=== PATIENT | male | born 1985 ===

== ENCOUNTER 2016-10-26 00:54 | Emergency (ER) | payer BC ==
[~2016-10-26] VITALS: Ht 172.7 cm; Wt 109.0 kg
[2016-10-26 01:06] VITALS: Ht 172.7 cm; Wt 109.0 kg
[2016-10-26] MEDS ORDERED: SOD CHLORIDE 0.9% 1,000 ML IV STA (01:27)
[2016-10-26] MEDS ORDERED: morphine 4 MG/ML VIAL IV STA (01:27)
[2016-10-26] MEDS ORDERED: ONDANSETRON 4 MG INJ IV STA (01:27)
[2016-10-26] MEDS ORDERED: HYDROmorphONE 1 MG/ML SYG IV STA ×2 (01:42→02:02)
[2016-10-26 01:56] VITALS: BP 132/80; PULSE 73; RESP 26; TEMP 98.4
--- NOTE | 2016-10-26 02:18 | RADRPT ---
PROCEDURE: CT ABDOMEN/PELVIS WITHOUT CONTRAST CLINICAL INDICATION: 31-year-old male with abdominal pain. TECHNIQUE: The study was performed utilizing a GE [employer] VCT 64-slice CT scanner. Direct axia l sections were obtained through the abdomen and pelvis without the use of intravenous contrast mate rial. Sagittal and coronal reformations were obtained. One or more of the following dose reduction t echniques were utilized: automated exposure control, adjustment of the mA and/or kV according to pat ient's size or use of iterative reconstruction technique. The images were reviewed on a PACS workst [employer]. CTD/vol = 23.1 mGy; Total Exam DLP = 16 100.0 mGy-cm. COMPARISON: None. FINDINGS: The lung bases are unremarkable. There is no evidence for significant pleural effusion. The liver has a normal size and contour without focal areas of abnormal density. No intrahepatic nor extrahepa tic biliary ductal dilatation is seen. The gallbladder demonstrates no wall thickening nor perichole cystic fluid. No biliary stones are evident. The pancreas is without areas of abnormal attenuation. The spleen is enlarged measuring 15.4 cm in maximal length but without abnormal density. The adrena l glands are unremarkable. The kidneys are without abnormal density. No hydroureteronephrosis nor ne phroureterolithiasis is evident. The urinary bladder contains a small volume of urine. Multiple surg ical clips are seen within the gastric region from prior bypass surgery. There is mild fecalization of the distal small bowel with retained stool within the ascending and transverse colon without jayla dence for obstruction. The appendix is visualized and is without abnormal thickening or surrounding inflammatory reaction. The aortoiliac vessels are without aneurysmal dilatation. The oss eous structures are intact. IMPRESSION: 1. Prior gastric surgery. 2. Splenomegaly. 3. No CT evidence for obstructive uropathy or renal calculi. 4. Fecalization of the distal small bowel with retained stool in the proximal colon without gross b owel obstruction. 5. No CT evidence for appendicitis. .Aristeo Bonner MD, MD Date Time Electronically viewed and signed by .Aristeo Bonner MD, MD on 10/26/2016 02:18 .M/
[2016-10-26 02:28] LABS: ADD UMIC NO; UR ASCORBIC ACID NEGATIVE (NEGATIVE); UR BILIRUBIN (Dip) NEGATIVE (NEGATIVE); UR BLOOD (Dip) NEGATIVE (NEGATIVE); UR CLARITY CLEAR (CLEAR); UR COLOR YELLOW (YELLOW); UR GLUCOSE (Dip) NEGATIVE (NEGATIVE); UR KETONES (Dip) TRACE mg/dL (NEGATIVE); UR LEUKOCYTE ESTERASE (Dip) NEGATIVE Leu/ul (NEGATIVE); UR NITRITE (Dip) NEGATIVE (NEGATIVE); UR SPECIFIC GRAVITY (Dip) 1.015 (1.003-1.030); UR TOTAL PROTEIN (Dip) NEGATIVE (NEGATIVE); UR UROBILINOGEN (Dip) NEGATIVE (NEGATIVE)
[2016-10-26 02:36] LABS: ALBUMIN 4.8 g/dl (3.3-4.9); ALBUMIN/GLOBULIN RATIO 1.5; BILIRUBIN,INDIRECT 0.1 mg/dl (0-1.1); BILIRUBIN,TOTAL 0.1 mg/dl (0.2-1.3); CALCIUM 10.4 mg/dl (8.4-10.2); CREATININE 0.96 mg/dl (0.61-1.24); POTASSIUM 3.6 mmol/L (3.5-5.1)
[2016-10-26 02:57] LABS: BASOPHIL # 0.1 10^3/ul (0.0-0.1); BASOPHILS % 0.5 % (0.0-2.0); EOSINOPHILS # 0.1 10^3/ul (0.0-0.5); EOSINOPHILS % 0.6 % (0.0-7.0); HEMATOCRIT 44.9 % (42.0-52.0); HEMOGLOBIN 15.9 g/dl (14.0-18.0); LYMPHOCYTES # 2.5 10^3/ul (0.8-2.9); MEAN CORPUSCULAR HEMOGLOBIN 30.9 pg (29.0-33.0); MEAN CORPUSCULAR HGB CONC 35.4 g/dl (32.0-37.0); MEAN CORPUSCULAR VOLUME 87.4 fl (82.0-101.0); MEAN PLATELET VOLUME 10.7 fl (7.4-10.4); MONOCYTE # 0.5 10^3/ul (0.3-0.9); MONOCYTES % 4.7 % (0.0-11.0); NEUTROPHILS % 70.9 % (39.0-77.0); NUCLEATED RED BLOOD CELLS% 0.3 /100WBC (0.0-0.0); PLATELET COUNT 146 10^3/UL (140-415); RED BLOOD COUNT 5.14 10^6/ul (4.70-6.10); RED CELL DISTRIBUTION WIDTH 13.4 % (11.5-14.5); WHITE BLOOD COUNT 10.8 10^3/ul (4.8-10.8)
[2016-10-26] MEDS ORDERED: SOD CHLORIDE 0.9% 1,000 ML IV ONE (03:00)
[2016-10-26] MEDS ORDERED: IOHEXOL 100 ML ONE (03:07)
[2016-10-26] MEDS ORDERED: SOD CHLORIDE 0.9% 100 ML ONE (03:07)
--- NOTE | 2016-10-26 04:12 | RADRPT ---
PROCEDURE: CTA MESENTERIC CLINICAL INDICATION: 31-year-old male with abdominal pain. TECHNIQUE: The study was performed utilizing a GE [employer]od[employer]aleidoscope VCT 64-slice CT scanner. Direct axia l sections were obtained through the abdomen and pelvis with the use of 100 cc of Omnipaque-350 stephie onic intravenous contrast material. Sagittal and coronal reformations were obtained. Maximal intensi ty projection reformations were obtained. One or more of the following dose reduction techniques wer e utilized: automated exposure control, adjustment of the mA and/or kV according to patient's size o r use of iterative reconstruction technique. The images were reviewed on a PACS workstation. CTD/v ol = 88.6 mGy; Total Exam DLP = 1498.1 mGy-cm. COMPARISON: CT abdomen/pelvis noncontrast October 26, 2016. FINDINGS: There is mild bibasilar subsegmental atelectasis.. There is no evidence for significant pleural eff usion. The liver has a normal size and contour without focal areas of abnormal density or contrast enhancement. No intrahepatic nor extrahepatic biliary ductal dilatation is seen. The gallbladder dem onstrates no wall thickening nor pericholecystic fluid. No biliary stones are evident. The pancreas is without areas of abnormal attenuation or contrast enhancement. This spleen is enlarged and measu res approximately 15.4 cm in maximal length but without abnormal density or contrast enhancement. Th e adrenal glands are unremarkable. The kidneys are functional bilaterally without abnormal density. No hydroureteronephrosis nor nephroureterolithiasis is evident. The urinary bladder contains urine. Surgical clips are seen within the gastric region from prior bypass surgery. There is fecalization o f the distal small bowel with mild retained stool within the ascending and transverse colon without obstruction. The appendix is visualized and is without edema or surrounding inflammatory reaction. T here is no significant free fluid. There is diffuse increased number of shotty para-aortic and retro peritoneal lymph nodes. Note definite dominant node is present. The prostate is not enlarged. The osseous structures are intact. The aortoiliac vessels are without aneurysmal dilatation or dissectio n. The celiac, superior mesenteric, renal and inferior mesenteric arteries are patent without evide nce for significant stenosis or occlusion. IMPRESSION: 1. Unremarkable CTA of the mesenteric vasculature. 2. Mild bibasilar subsegmental atelectasis. 3. Splenomegaly. 4. Prior gastric bypass surgery. 5. Fecalization of the distal small bowel and mild retained stool within the proximal colon without obstruction. 6. Marked diffuse increased para-aortic/retroperitoneal lymph nodes. .Aristeo Bonner MD, Date Time Electronically viewed and signed by .Aristeo Bonner MD, on 10/26/2016 04:12 .M/
[2016-10-26] MEDS ORDERED: KETOROLAC 30 MG INJ IV STA (04:17)
[2016-10-26] MEDS ORDERED: HYDR-906 PO (06:26)
[2016-10-26] MEDS ORDERED: NAPR-688 PO (06:26)
[2016-10-26] MEDS ORDERED: POLY17PO6 PO (06:26)
--- NOTE | 2016-10-26 06:54 | ERD ---
ER Documentation Chief Complaint Date/Time DATE: 10/26/16 TIME: 06:29 Chief Complaint GEN AP X 2 HRS AFTER EATING. HX OF GASTRIC SURGERY HPI This 31-year-old male presents emergency room with acute severe abdominal pain 2 hours after eating. Is not sure that he ate too much. Severe abdominal pain with nausea, no current vomiting. His gastric sleeve was placed 2 years ago at [facility]. No shortness of breath or cardiac issues per ROS All systems reviewed and are negative except as per history of present illness. Medications Home Meds Active Scripts Polyethylene Glycol* (Miralax*) 17 Gm Powd.pack, 17 GM PO DAILY, #7 Prov:PEDRO BUCKLEY DO 10/26/16 Hydrocodone/Acetaminophen (Newcomb 5-325 Tablet) 1 Each Tablet, 1 EACH PO Q6, #24 TAB Prov:PEDRO BUKCLEY DO 10/26/16 Naproxen* (Naproxen*) 500 Mg Tablet, 500 MG PO BID Y for pian, #20 TAB Prov:PEDRO BUCKLEY DO 10/26/16 Allergies Allergies: Coded Allergies: No Known Allergy (Unverified , 10/26/16) PMhx/Soc History of Surgery: Yes (GASTRIC SLEEVE) Anesthesia Reaction: No Hx Neurological Disorder: No Hx Respiratory Disorders: No Hx Cardiac Disorders: No Hx Psychiatric Problems: No Hx Miscellaneous Medical Probl: No Hx Alcohol Use: Yes (SOCIALLY) Hx Substance Use: No Hx Tobacco Use: Yes (CIGGARETES) Smoking Status: Current every day smoker Physical Exam Vitals Vital Signs Date Time Temp Pulse Resp B/P Pulse Ox O2 Delivery O2 Flow Rate FiO2 10/26/16 01:56 98.4 73 26 132/80 100 Room Air 10/26/16 01:06 98.4 76 28 202/64 100 Physical Exam Const: [] Severe distress Head: Atraumatic Eyes: Normal Conjunctiva ENT: Normal External Ears, Nose and Mouth. Neck: Full range of motion..~ No meningismus. Resp: Clear to auscultation bilaterally Cardio: Regular rate and rhythm, no murmurs Abd: Soft, mild mid abdominal tenderness, non distended. Normal bowel sounds Skin: No petechiae or rashes Back: No midline or flank tenderness Ext: No cyanosis, or edema Neur: Awake and alert and oriented x 3, no focal deficits Psych: Normal Mood and Affect Result Diagram: 9/3/17 0026 10/26/16 0026 Results 24 hrs Laboratory Tests Test 10/26/16 00:26 10/26/16 01:37 10/26/16 01:50 10/26/16 05:08 White Blood Count 10.810^3/ul Red Blood Count 5.1410^6/ul Hemoglobin 15.9g/dl Hematocrit 44.9% Mean Corpuscular Volume 87.4fl Mean Corpuscular Hemoglobin 30.9pg Mean Corpuscular Hemoglobin Concent 35.4g/dl Red Cell Distribution Width 13.4% Platelet Count 82632^3/UL Mean Platelet Volume 10.7fl Neutrophils % 70.9% Lymphocytes % 23.0% Monocytes % 4.7% Eosinophils % 0.6% Basophils % 0.5% Nucleated Red Blood Cells % 0.3/100WBC Neutrophils # (Manual) 7.710^3/ul Lymphocytes # 2.510^3/ul Monocytes # 0.510^3/ul Eosinophils # 0.110^3/ul Basophils # 0.110^3/ul Nucleated Red Blood Cells # 0.010^3/ul Sodium Level 142mmol/L Potassium Level 3.6mmol/L Chloride Level 103mmol/L Carbon Dioxide Level 25mmol/L Anion Gap 18 Blood Urea Nitrogen 11mg/dl Creatinine 0.96mg/dl Glucose Level 120mg/dl Calcium Level 10.4mg/dl Total Bilirubin 0.1mg/dl Direct Bilirubin 0.00mg/dl Indirect Bilirubin 0.1mg/dl Aspartate Amino Transf (AST/SGOT) 24IU/L Alanine Aminotransferase (ALT/SGPT) 38IU/L Alkaline Phosphatase 56IU/L Total Protein 8.0g/dl Albumin 4.8g/dl Globulin 3.20g/dl Albumin/Globulin Ratio 1.50 Lipase 180U/L Lactic Acid Level 5.1mmol/L 2.3mmol/L Urine Color YELLOW Urine Clarity CLEAR Urine pH 7.0 Urine Specific Rake 1.015 Urine Ketones TRACEmg/dL Urine Nitrite NEGATIVEmg/dL Urine Bilirubin NEGATIVEmg/dL Urine Urobilinogen NEGATIVEmg/dL Urine Leukocyte Esterase NEGATIVELeu/ul Urine Hemoglobin NEGATIVEmg/dL Urine Glucose NEGATIVEmg/dL Urine Total Protein NEGATIVEmg/dl Current Medications Medications (Trade) Dose Ordered Sig/Mona Route PRN Reason Start Time Stop Time Status Last Admin Dose Admin Sodium Chloride (NS) 1,000 ml @ 1,000 mls/hr Q1H STAT IV 10/26/16 01:27 10/26/16 02:26 DC 10/26/16 01:48 Morphine Sulfate (morphine) 8 mg ONCE STAT IV 10/26/16 01:27 10/26/16 01:29 DC 10/26/16 01:47 Ondansetron HCl (Zofran Inj) 4 mg ONCE STAT IV 10/26/16 01:27 10/26/16 01:29 DC 10/26/16 01:47 Hydromorphone HCl (Dilaudid) 1 mg ONCE STAT IV 10/26/16 01:42 10/26/16 01:43 DC 10/26/16 01:54 Hydromorphone HCl 1 mg 1 mg ONCE STAT IV 10/26/16 02:02 10/26/16 02:03 DC 10/26/16 02:26 Sodium Chloride (NS) 1,000 ml @ 1,000 mls/hr Q1H ONCE IV 10/26/16 03:00 10/26/16 03:59 DC 10/26/16 03:14 IV Flush 10 ml 10 ml STK-MED ONCE .ROUTE 10/26/16 03:07 10/26/16 03:08 DC 10/26/16 03:17 Sodium Chloride 100 ml @ ud STK-MED ONCE .ROUTE 10/26/16 03:07 10/26/16 03:08 DC 10/26/16 03:18 Iohexol (Omnipaque) 100 ml @ ud STK-MED ONCE .ROUTE 10/26/16 03:07 10/26/16 03:08 DC 10/26/16 03:19 Ketorolac Tromethamine (Toradol) 30 mg ONCE STAT IV 10/26/16 04:17 10/26/16 04:18 DC 10/26/16 04:44 Procedures/MDM Severe abdominal pain post eating in a gastric sleeve patient. Patient needed morphine and 2 g of Dilaudid to control his abdominal pain however, he was monitored for hours after that while a mesenteric ischemia workup was performed and he did not have return of his abdominal pain. Lactic acid initially elevated prompting a mesenteric ischemia workup with pain out of proportion to physical exam showed no signs of mesenteric ischemia. The patient also remained well and did not require any additional medication was feeling well and preferred to go home. Given him strict return precautions and instructions to follow-up with his surgery team at [facility]. He was hydrated with normal saline as well and given Zofran. Going to discharge her with Newcomb , naproxen and some MiraLAX in case he develops constipation and help with equalization of the small bowel and mild constipation. CT abdomen pelvis interpretation: I see no acute process, I see no obstruction, no free air, no abnormal fat stranding, no fractures. CT abdomen angiogram: No signs of mesenteric ischemia, no perforation, no obstruction, no fractures. Departure Diagnosis: Primary Impression: Elevated lactic acid level Additional Impression: Acute abdominal pain Condition: Stable Patient Instructions: Abdominal Pain Additional Instructions: Call your primary care doctor TOMORROW for an appointment during the next 1-2 days.See the doctor sooner or return here if your condition worsens before your appointment time. PEDRO BUCKLEY DO Oct 26, 2016 06:54
== END 2016-10-26 07:20 | disposition home or self-care (01) ==
LOC: E/R 00:54
DX: R74.0 Nonspecific elevation of levels of transaminase and lactic acid dehydrogenase [LDH] (principal); F17.210 Nicotine dependence, cigarettes, uncomplicated; R11.0 Nausea
CPT/HCPCS: 36415; 74176; 75635; 80053; 81003; 83605; 83690; 85025; 96374; 96375; 96376; 99285; J1170; J1885; J2270; J2405; J7030; Q9967